=== PATIENT | male | born 1935 | race Caucasian/White ===

== ENCOUNTER → 2017-02-26 | Outpatient (CLI) | payer OTHER ==
[~2017-02-26] MED LIST: AMIO200T7 PO; ASCO250T4 PO; ASPI1TAB83 PO; DOCU100C31 PO; FINA5TAB4 PO; FURO40TA3 PO; LISI2.5T5 PO; LPR25 PO; OMEP20TA PO; OXYC-57 PO; POTA-74 PO; PRENTAB PO; SIMV20TA2 PO; TAMS0.4C59 PO
[2017-02-26 10:05] LABS: CHOLESTEROL/HDL RATIO 3.5
== END | disposition home or self-care (01) ==
LOC: C.LAB1850 08:58
PROVIDERS: ATTEND Internal Medicine Cardiovascular Disease
DX: E78.00 Pure hypercholesterolemia, unspecified (principal)

== ENCOUNTER 2022-03-16 10:11 | Observation (INO) ==
[2022-03-16] MEDS ORDERED: MECLIZINE HCL 25 MG TAB PO STA (10:37)
[2022-03-16] MEDS ORDERED: LABETALOL HCL IV 5 MG/ML 20ML IV STA (10:37)
[2022-03-16] MEDS ORDERED: SODIUM CHLORIDE 0.9% 500 ML IV ONE (10:37)
--- NOTE | 2022-03-16 10:42 | Emergency Department Note ---
Impression & Plan Ataxia, Vertebral artery stenosis, Hypertension ED Provider Note Name: MAE CARMEN Age: 87 Sex: M Arrives Via: Walk-In Informant: Patient, Nephew ED Provider: Forrest Mcintyre MD Chief Complaint: Dizziness Impression: As per impressions above Medical Decision Makin-year-old gentleman with a history of CAD, hypertension, hypercholesterolemia, atherosclerosis and previous CABG arrives for evaluation of dizziness/ataxia. On initial evaluation patient NIH is 0 but does have some difficulty with ambulation back and forth to bathroom. Symptoms ongoing since he awoke and thus not TNKase/thrombolytic candidate. His initial EKG on arrival is somewhat irregular though difficult to tell if this is just underlying PACs and tremor versus a flutter/fib. Patient is not anticoagulated other than aspirin 81 mg daily. Laboratory work-up is benign. Chest x-ray is benign. I did get a CTA of the head and neck to rule out large vessel occlusion as well as bleed which are both unremarkable for acute findings but do show significant atherosclerosis and narrowing primarily in the left vertebral artery. Patient was given some fluids, was seen p.o. and labetalol IV. His blood pressure did trend down some. He is in no distress breathing comfortably and states his dizziness is better. He is still having some ataxia issues. I am somewhat concerned that he has had small stroke especially given the significant bump in his blood pressure and inability to ambulate without help. Hospitalist was consulted for further management. I did order aspirin 324 mg p.o. however patient declined to take this given his history of nosebleeds. Per PCP notes: Patient does have a history of A. fib post CABG however that is been resolved he is no longer on anticoagulants Prior Medical Record and Triage/Nursing Notes reviewed by Me Additional history obtained from patient's nephew as well as previous PCP visits. Differentials:BPPV, dissection, dehydration, otitis media, electrolyte imbalance, intracranial hemorrhage, large vessel occlusion, stroke amongst other pathologies considered. Vital Signs: reviewed and remarkable for hypertension Interventions: Labetalol 10 mg IV, meclizine 25 mg p.o., normal saline bolus Labs:Reviewed and remarkable for no significant abnormalities on CBC, BMP, LFTs and COVID testing. Imaging:CT angio of the head and cervical spine no acute findings per radiology though there is significant vertebral stenosis noted. 1 view chest x-ray interpretation by me mild congestive failure no lobar infiltrates EKG:Interpretation per me. Indication stroke like symptoms. Normal sinus rh ythm at 64 bpm with a QTC of 476. There is a PAC noted. There is an underlying tremor versus a flutter noted however I feel this is more likely normal sinus rhythm. There is a left bundle branch block. There are no previous EKGs for comparison. Cardiac/Tele Monitoring: Cardiac Monitoring: An Order was placed for continuous cardiac monitoring. The monitor shows a rate of 60 with a normal sinus rhythm. Consults:Dr. Brunilda ELISE Hospitalist Plan: Disposition:Hospitalization. Condition: Good History of Present Illness:87-year-old male arrives for evaluation of dizzines s. Patient awoke this morning feeling dizzy. States he was unable to walk straight and fell over when feeding the cat. Continued dizziness. Patient denies any focal weakness. Denies any visual changes. States that he is feeling some spinning. He was able to drive to his nephew's house but could not go any further due to dizziness. Denies any headache, neck pain, chest pain, back pain, abdominal pain or other concerning signs or symptoms. Patient denies any history of A. fib or irregular heart rates. Past medical history: CAD, hypertension, CABG, hyper cholesterolemia, atherosclerosis Home Medications:Aspirin no other blood thinners amongst other medications he does take Allergies:No known drug allergies Vitals:Blood Pressure: 190/93, Pulse 67, RR 20, T 36.4C, O2 97% on RA Physical Exam: GENERAL: Patient is uncomfortable appearing and in mild distress. Very hard of hearing ENT: Mucous membranes moist, no nasal congestion. NECK: No masses appreciated, nomeningismus, trachea is midline. RESPIRATORY: No dyspnea. Clear to auscultation and equal bilaterally. No wheeze, no rhonchi. CARDIOVASCULAR: Irregular.No murmurs, rubs, gallops appreciated. GASTROINTESTINAL: Abdomen soft, non-tender, no peritonitis.Bowel sounds positive.No masses appreciated. NEUROLOGIC: Alert and oriented, no acute motor or sensory deficits, no focal weakness, cranial nerves grossly intact. SKIN: No rash, no jaundice, no diaphoresis. PSYCH: Appropriate GCS: 15 ED Course: Times/Reassessments: Patient does appear more comfortable however he is still having some difficulty getting back and forth to the bathroom requiring some assistance by the nursing staff. Forrest Mcintyre MD Past Med/Surg History Medical History (Updated 03/16/22 @ 13:58 by Forrest Mcintyre MD) Atrial fibrillation Clavicle fracture Hypersensitivity pneumonitis Lacunar stroke Pneumonia Surgical History S/P CABG x 3 S/P hernia repair Family History Father Coronary heart disease Other FH: CABG (coronary artery bypass surgery) Parkinson disease Social History Smoking Status: Unknown if ever smoked Hx Alcohol Use: Yes (social) Preferred Language: Samoan marital status: Single current occupational status: retired Feels Safe at Home: Yes Allergies Allergies Allergy/AdvReac Type Severity Reaction Status Date / Time No Known Drug Allergies Allergy Verified 03/03/22 10:44 Home Meds Home Medications Medication Instructions Recorded Confirmed ascorbic acid (vitamin C) 500 mg 500 mg PO BID 12/10/18 03/03/22 tablet aspirin 81 mg tablet,delayed 81 mg PO Q OTHER DAY 12/10/18 03/03/22 release (Adult Low Dose Aspirin) Previous Rx's Medication Instructions Recorded finasteride 5 mg tablet 5 mg PO DAILY #90 tabs 09/29/21 metoprolol tartrate 25 mg tablet 25 mg PO BID #180 tabs 09/29/21 simvastatin 20 mg tablet 20 mg PO DAILY #90 tabs 09/29/21 tamsulosin 0.4 mg capsule 0.4 mg PO DAILY #90 caps 09/29/21 Results & Data (ED) Vital Signs Vital Signs - 24 hr 03/16/22 10:19 03/16/22 13:30 03/16/22 11:00 Temperature 36.4 C L Temperature Source Skin Pulse Rate 67 Pulse Rate [Left Apical] 84 62 Pulse Rhythm [Left Apical] Regular Regular Pulse Strength [Left Apical] Normal Normal Respiratory Rate 20 19 20 Respiratory Effort / Characteristics Non-Labored Non-Labored Spontaneous Non-Labored Spontaneous Respiratory Depth Normal Normal Normal Respiratory Pattern Regular Regular Regular Blood Pressure 190/93 H Blood Pressure [Right Arm] 169/104 H 169/95 H Blood Pressure Mean 125 Blood Pressure Mean [Right Arm] 125 119 Blood Pressure Position [Right Arm] Lying Lying Pulse Oximetry 97 96 93 Oxygen Delivery Method Room Air Room Air Room Air Sepsis Recent Fever Within 48 Hours No Sepsis New/Unexplained Change in Mental Status N/A Sepsis Action Taken by Nursing No Action Required 03/16/22 12:00 Temperature Temperature Source Pulse Rate Pulse Rate [Left Apical] 69 Pulse Rhythm [Left Apical] Regular Pulse Strength [Left Apical] Normal Respiratory Rate 18 Respiratory Effort / Characteristics Non-Labored Spontaneous Respiratory Depth Normal Respiratory Pattern Regular Blood Pressure Blood Pressure [Right Arm] 155/91 H Blood Pressure Mean Blood Pressure Mean [Right Arm] 112 Blood Pressure Position [Right Arm] Lying Pulse Oximetry 94 Oxygen Delivery Method Room Air Sepsis Recent Fever Within 48 Hours Sepsis New/Unexplained Change in Mental Status Sepsis Action Taken by Nursing Laboratory Data 03/16/22 10:45 03/16/22 10:45 Lab Results 03/16/22 03/16/22 03/16/22 Range/Units 10:45 10:45 10:45 WBC 9.10 (4.8-10.8) K/ul RBC 4.75 (4.63-6.08) M/uL Hgb 14.9 (14.0-18.0) g/dl Hct 43.9 (40.1-51.0) % MCV 92.4 (80.0-100.0) fL MCH 31.4 (25.0-34.0) pg MCHC 33.9 (32.0-36.0) g/dL RDW Std Deviation 41.4 (36.4-46.3) fL RDW Coeff of Steven 12.1 (11.5-14.5) % Plt Count 240 (130-400) K/uL MPV 9.6 (9.4-12.4) fL Immature Gran % (Auto) 0.3 % Neut % (Auto) 80.6 % Lymph % (Auto) 8.9 % [place] % (Auto) 8.8 % Eos % (Auto) 1.0 % Baso % (Auto) 0.4 % Neut # (Auto) 7.33 H (1.4-6.5) K/uL Lymph # (Auto) 0.81 L (1.2-3.4) K/uL [place] # (Auto) 0.80 (0.24-0.82) K/uL Eos # (Auto) 0.09 (0-0.50) K/uL Baso # (Auto) 0.04 (0-0.2) K/uL Immature Gran # (Auto) 0.03 H (0.00-0.02) K/uL Sodium 138 (136-145) mmol/L Potassium 4.4 (3.5-5.1) mmol/L Chloride 109 H (98-107) mmol/L Carbon Dioxide 24 (21-32) mmol/L Anion Gap 5 (3-11) BUN 25 H (6-23) mg/dl Creatinine 1.04 (0.6-1.4) mg/dl Est Cr Clr Drug Dosing 44.3 ml/min Est GFR ( Amer) 74.0 ml/min Est GFR (Non-Af Amer) 63.8 ml/min BUN/Creatinine Ratio 24.0 H (10-20) Glucose 115 H (70-99(Fasting)) mg/dl Calcium 9.0 (8.5-10.1) mg/dl Magnesium 1.9 (1.7-2.4) mg/dl Total Bilirubin 0.8 (0.2-1.0) mg/dl AST 19 (13-39) U/L ALT 12 (7-52) U/L Alkaline Phosphatase 77 (34-104) U/L Troponin I High Sens 32.3 H (0-20) pg/ml Total Protein 7.4 (6.0-8.3) gm/dl Albumin 3.7 (3.4-5.0) gm/dl Globulin 3.7 (2.5-4.0) gm/dl Albumin/Globulin Ratio 1.0 (0.9-2) SARS-CoV-2, RNA, NAAT NEGATIVE (NEGATIVE) Administered Medications Discontinued Medications Aspirin (Aspirin 81 Mg Chew) 324 mg PO NOW STA Stop: 03/16/22 12:50 Last Admin: 03/16/22 13:07 Dose: Not Given Documented By: BONNY Sodium Chloride (Nss) 500 mls @ 999 mls/hr IV .Q31M ONE Stop: 03/16/22 11:07 Last Infusion: 03/16/22 12:11 Dose: 0 mls/hr Documented By: Admin: 03/16/22 11:03 Dose: 999 mls/hr Documented By: BONNY Ioversol (Optiray 320 500ml) 114 ml IV ONCE ONE Stop: 03/16/22 11:31 Last Admin: 03/16/22 11:37 Dose: 114 ml Documented By: SHELBY Labetalol HCl (Labetalol Hcl Iv 5 Mg/Ml 20ml) 10 mg IV NOW STA Stop: 03/16/22 10:38 Last Admin: 03/16/22 11:03 Dose: 10 mg Documented By: BONNY Co-signed By: ELISABETH Meclizine HCl (Meclizine Hcl 25 Mg Tab) 25 mg PO NOW STA Stop: 03/16/22 10:38 Last Admin: 03/16/22 11:03 Dose: 25 mg Documented By: BONNY Imaging Data Radiologist's Impression: Head CTA 03/16/22 10:37 CT angio head wo/w CLINICAL HISTORY: Stroke TECHNIQUE: Contiguous axial CT images of the head were acquired from the base of the skull to the vertex without intravenous contrast administration. CT angiography of the head was performed following intravenous administration of iodinated contrast. Coronal and sagittal MIPS were obtained from the axial data set and were submitted for review. Automated dose lowering techniques and/or adjustment according to patient size were utilized for this examination. All measurements were calculated based on NASCET criteria. CT DOSE: 1083.88 mGy.cm Comparison: Comparison is made to CT neck 03/16/2022 and MRI brain 06/22/2009 FINDINGS: CT head: Areas of decreased attenuation are present in the periventricular and subcortical white matter bilaterally consistent with small vessel ischemic disease. Generalized cerebral atrophy with commensurate enlargement of the ventricles, sulci, and cisterns is also present. There is no acute intracranial hemorrhage or evidence of acute territorial infarction. No shift of the midline structures, mass effect, or extra-axial abnormalities are shown. Atherosclerotic calcifications are present in the intracranial segments of the internal carotid arteries. Old infarct is seen in the left internal capsule. Right maxillary and bilateral ethmoid and sphenoid sinus disease is noted. CTA Head: The anterior and posterior cerebral circulations are patent. No hem odynamically significant stenosis, aneurysm, dissection, or arteriovenous malformation is shown. 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 There is markedly narrowing of the V4 segment of the left vertebral artery. Distal reconstitution is noted. origin of the right posterior cerebral artery is seen. IMPRESSION: 1. No acute intracranial hemorrhage, evidence of acute territorial infarction, or other acute intracranial disease process. 2. 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 This appears to be a chronic finding. Otherwise no occlusion or aneurysm is seen. Assessment of stenosis of the internal carotid arteries is based on NASCET criteria. ACT 112: Negative or not required by law. Electronically signed by: Nathan Delaney M.D. 03/16/2022 12:34 PM Neck CTA 03/16/22 10:37 CT ANGIOGRAPHY OF THE NECK WITH CONTRAST CLINICAL HISTORY: Stroke. Dizziness. COMPARISON STUDY: No previous studies for comparison. Technique: CT angiography of the carotid and vertebral arteries was obtained using Optiray and 3D reconstruction on an independent workstation. NASCET criteria was utilized. Automated exposure control was utilized for the study. A dose lowering technique was utilized adhering to the principles of ALARA. Findings: Median sternotomy wires are partially imaged. Right maxillary sinus is largely opacified. There is moderate mucosal thickening of the left maxillary and ethmoid sinuses. There are air-fluid levels within the sphenoid sinuses. There is mild mucosal thickening within inferior frontal sinuses. Moderate plaque is noted within the bilateral carotid bifurcations without significant stenosis. There is no dissection or aneurysm within the neck. Origin of the right vertebral artery is suboptimally assessed on this exam but there is suspected moderate stenosis at the vessel origin. There is severe stenosis of the intracranial portion of the left vertebral artery. IMPRESSION: 1. Moderate atherosclerotic plaque within the bilateral carotid bifurcations without significant stenosis. 2. Suspected moderate stenosis at the origin of the right vertebral artery, suboptimally assessed on this exam. Severe stenosis of the intracranial portion of the left vertebral artery. 3. Paranasal sinus opacification, as above. ACT 112: Negative or not required by law. Electronically signed by: Emiliano Morocho M.D. 03/16/2022 11:55 AM Chest X-Ray 03/16/22 10:38 XR chest 1V portable CLINICAL HISTORY: stroke TECHNIQUE: Single frontal radiograph of the chest was obtained. Comparison: Comparison is made to chest radiograph 11/18/2012 FINDINGS: Median sternotomy wires are unchanged. Cardiomegaly is noted. Faint airspace opacities are seen in the bilateral lower lungs. Prominence of the pulmonary vasculature is noted. No evidence of pleural effusion or pneumothorax. IMPRESSION: 1. Faint bibasilar airspace opacities likely represent atelectasis with or without superimposed aspiration/pneumonia. 2. Cardiomegaly and pulmonary edema. ACT 112: Negative or not required by law. Electronically signed by: Nathan Delaney M.D. 03/16/2022 11:22 AM Discharge Plan Visit Data Chief Complaint: Dizziness Stated Complaint: DIZZINESS, HYPERTENSION ED Provider: Forrest Mcintyre Discharge Problem: Ataxia, Vertebral artery stenosis, Hypertension Forms Stand Alone Forms: [employer] Prescriptions Prescriptions: No Action aspirin [Adult Low Dose Aspirin] 81 mg tablet,delayed release (DR/EC) 81 mg PO Q OTHER DAY ascorbic acid (vitamin C) 500 mg tablet 500 mg PO BID finasteride 5 mg tablet 5 mg PO DAILY Qty: 90 3RF metoprolol tartrate 25 mg tablet 25 mg PO BID Qty: 180 3RF simvastatin 20 mg tablet 20 mg PO DAILY Qty: 90 3RF tamsulosin 0.4 mg capsule 0.4 mg PO DAILY Qty: 90 3RF Referrals Referrals: Raffi Cool MD [Primary Care Provider] - : Vertebral artery stenosis Qualifiers: Laterality: left Qualified Code(s): I65.02 - Occlusion and stenosis of left vertebral artery Hypertension Qualifiers: Hypertension type: unspecified Qualified Code(s): I10 - Essential (primary) hypertension
[2022-03-16 10:58] LABS: Basophils # (auto) 0.04 K/uL (0-0.2); Basophils % (auto) 0.4 %; Eosinophils # (auto) 0.09 K/uL (0-0.50); Hematocrit (blood only) 43.9 % (40.1-51.0); Hemoglobin 14.9 g/dl (14.0-18.0); Immature Granulocytes # (auto) 0.03 K/uL (0.00-0.02); Immature Granulocytes % (auto) 0.3 %; Lymphocytes # (auto) 0.81 K/uL (1.2-3.4); Lymphocytes % (auto) 8.9 %; Mean Corpuscular Hemoglobin 31.4 pg (25.0-34.0); Mean Corpuscular Hgb Conc 33.9 g/dL (32.0-36.0); Mean Corpuscular Volume 92.4 fL (80.0-100.0); Mean Platelet Volume 9.6 fL (9.4-12.4); Monocytes % (auto) 8.8 %; Neutrophils # (auto) 7.33 K/uL (1.4-6.5); Neutrophils % (auto) 80.6 %; Platelet Count 240 K/uL (130-400); RDW Coefficient of Variation 12.1 % (11.5-14.5); RDW Standard Deviation 41.4 fL (36.4-46.3); Red Blood Count 4.75 M/uL (4.63-6.08)
[2022-03-16 11:20] LABS: Albumin Level 3.7 gm/dl (3.4-5.0); Bilirubin,Total 0.8 mg/dl (0.2-1.0); Creatinine Clr Calc Pharmacy 44.3 ml/min; Est GFR (Non-African American) 63.8 ml/min; Globulin 3.7 gm/dl (2.5-4.0); Magnesium 1.9 mg/dl (1.7-2.4); Potassium 4.4 mmol/L (3.5-5.1); Total Protein 7.4 gm/dl (6.0-8.3)
--- NOTE | 2022-03-16 11:23 | XRay Report ---
XR chest 1V portable CLINICAL HISTORY: stroke TECHNIQUE: Single frontal radiograph of the chest was obtained. Comparison: Comparison is made to chest radiograph 11/18/2012 FINDINGS: Median sternotomy wires are unchanged. Cardiomegaly is noted. Faint airspace opacities are seen in th e bilateral lower lungs. Prominence of the pulmonary vasculature is noted. No evidence of pleural eff usion or pneumothorax. IMPRESSION: 1. Faint bibasilar airspace opacities likely represent atelectasis with or without superimposed aspi ration/pneumonia. 2. Cardiomegaly and pulmonary edema. ACT 112: Negative or not required by law. Electronically signed by: Nathan Delaney M.D. 03/16/2022 11:22 AM
[2022-03-16 11:26] LABS: Troponin I High Sensitivity 32.3 pg/ml (0-20)
[2022-03-16] MEDS ORDERED: OPTIRAY 320 500ml IV ONE (11:30)
--- NOTE | 2022-03-16 11:56 | CT Scan Report ---
CT ANGIOGRAPHY OF THE NECK WITH CONTRAST CLINICAL HISTORY: Stroke. Dizziness. COMPARISON STUDY: No previous studies for comparison. Technique: CT angiography of the carotid and vertebral arteries was obtained using Optiray and 3D rec onstruction on an independent workstation. NASCET criteria was utilized. Automated exposure control was utilized for the study. A dose lowering technique was utilized adhering to the principles of ALA RA. Findings: Median sternotomy wires are partially imaged. Right maxillary sinus is largely opacified. T here is moderate mucosal thickening of the left maxillary and ethmoid sinuses. There are air-fluid le vels within the sphenoid sinuses. There is mild mucosal thickening within inferior frontal sinuses. M oderate plaque is noted within the bilateral carotid bifurcations without significant stenosis. There is no dissection or aneurysm within the neck. Origin of the right vertebral artery is suboptimally a ssessed on this exam but there is suspected moderate stenosis at the vessel origin. There is severe s tenosis of the intracranial portion of the left vertebral artery. IMPRESSION: 1. Moderate atherosclerotic plaque within the bilateral carotid bifurcations without significant sten osis. 2. Suspected moderate stenosis at the origin of the right vertebral artery, suboptimally assessed on this exam. Severe stenosis of the intracranial portion of the left vertebral artery. 3. Paranasal sinus opacification, as above. ACT 112: Negative or not required by law. Electronically signed by: Emiliano Morocho M.D. 03/16/2022 11:55 AM
--- NOTE | 2022-03-16 12:36 | CT Scan Report ---
CT angio head wo/w CLINICAL HISTORY: Stroke TECHNIQUE: Contiguous axial CT images of the head were acquired from the base of the skull to the iban mickey without intravenous contrast administration. CT angiography of the head was performed following intravenous administration of iodinated contrast. Coronal and sagittal MIPS were obtained from the ax ial data set and were submitted for review. Automated dose lowering techniques and/or adjustment acc ording to patient size were utilized for this examination. All measurements were calculated based on NASCET criteria. CT DOSE: 1083.88 mGy.cm Comparison: Comparison is made to CT neck 03/16/2022 and MRI brain 06/22/2009 FINDINGS: CT head: Areas of decreased attenuation are present in the periventricular and subcortical white vladimir er bilaterally consistent with small vessel ischemic disease. Generalized cerebral atrophy with comme nsurate enlargement of the ventricles, sulci, and cisterns is also present. There is no acute intracr anial hemorrhage or evidence of acute territorial infarction. No shift of the midline structures, mas s effect, or extra-axial abnormalities are shown. Atherosclerotic calcifications are present in the intracranial segments of the internal carotid arteries. Old infarct is seen in the left internal caps ule. Right maxillary and bilateral ethmoid and sphenoid sinus disease is noted. CTA Head: The anterior and posterior cerebral circulations are patent. No hemodynamically significan t stenosis, aneurysm, dissection, or arteriovenous malformation is shown. 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 There is markedly narrowing of the V4 segment of the left verteb ral artery. Distal reconstitution is noted. origin of the right posterior cerebral artery is se en. IMPRESSION: 1. No acute intracranial hemorrhage, evidence of acute territorial infarction, or other acute intrac ranial disease process. 2. 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 This appears to be a chronic finding. Otherwise no occlusion or aneurysm is seen. Assessment of stenosis of the internal carotid arteries is based on NASCET criteria. ACT 112: Negative or not required by law. Electronically signed by: Nathan Delaney M.D. 03/16/2022 12:34 PM
[2022-03-16] MEDS ORDERED: ASPIRIN 81 MG CHEW PO STA (12:49)
--- NOTE | 2022-03-16 13:02 | History & Physical Report ---
Date of Service March 16, 2022 Assessment & Plan (1) CVA (cerebral vascular accident): Plan: - Patient without is presenting with ataxia in ED present since this AM, without any other focal deficits. - Received full dose aspirin. - Initially hypertensive 190/93, received 10 mg labetalol, SBOP now 150s. 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 - Differential at this point is CVA vs vertigo. - MRI, routine, tomorrow. - Echo in a.m. - CBC, BMP, HbA1c, lipid panel in a.m. - PT, OT, ST to evaluate in a.m. - Labetalol 10 mg every 15 IV as needed, defer to ICU for continued IV boluses versus drip, goal SBP < 180, DBP <100. - Avoid hypotension, hypoglycemia. - Neurology consulted, appreciate their recommendations and assistance with this patient. - Already on moderate dose statin, consider adding high dose tomorrow pending lipid panel. - Already on ASA 81 mg every other day (gets nosebleeds if he takes daily), can consider switching to Plavix tomorrow, will defer decision to neurology. - Telemetry for 24 hours, evaluate for episodes of atrial fibrillation. (2) Elevated troponin: Plan: - HS troponin 32.3, patient without any chest pain, EKG LBBB, no prior EKGs for reference. - We will trend troponin, obtain echo. - Patient did receive full dose aspirin in ED for suspected CVA. (3) CAD (coronary artery disease): Plan: - s/P CABG 2012. - Trending troponin as above, echo. - Continue metoprolol, simvastatin, ASA. (4) Enlarged prostate with lower urinary tract symptoms (LUTS): Plan: - Continue finasteride, tamsulosin. (5) Benign hypertension: (6) Hypercholesterolemia: Plan - Admit to PCU. - SCDs, Lovenox for VTE ppx. - Full Code. History of Present Illness Chief Complaint: vertigo/dizziness since this morning Primary Care Provider: Raffi Cool MD Rafael Benítez is an 87 y/o male with a PMH significant for CAD s/p P CABG x2 in 2012, hypertension, hyperlipidemia, and BPH is presenting today with complaints of dizziness. Patient woke up this morning and noticed he was dizzy, having a hard time walking through his home performing chores. He fell over several times, noting he hit his head once, but without pain anywhere. He drove himself to 3 miles to his nephew's house, who then brought him to the ED for further evaluation. He is not noting any focal numbness, weakness, tingling, speech difficulties, visual changes, nausea, or vomiting. He still having a difficult time walking. On presentation he was initially hypertensive 190/93, given 10 mg IV labetalol down to 160/90. Vital signs otherwise within normal limits. Labs are unremarkable, with the exception of a troponin of 32.3. Renal function at baseline, no electrolyte abnormalities, no leukocytosis or anemia. COVID- negative. 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 CXR w/ faint bibasilar airspace opacities likely represent, cardiomegaly and pulmonary edema also noted. Upon arrival, patient received full dose aspirin 324 mg, 10 mg IV labetalol for SBP 190/93, 25 mg oral meclizine and 500 cc NS bolus. Allergies Allergy/AdvReac Type Severity Reaction Status Date / Time No Known Drug Allergies Allergy Verified 03/03/22 10:44 Home Medications Medication Instructions Recorded Confirmed Type ascorbic acid (vitamin C) 500 mg 500 mg PO BID 12/10/18 03/03/22 History tablet aspirin 81 mg tablet,delayed 81 mg PO Q OTHER DAY 12/10/18 03/03/22 History release (Adult Low Dose Aspirin) finasteride 5 mg tablet 5 mg PO DAILY #90 tabs 09/29/21 03/03/22 Rx metoprolol tartrate 25 mg tablet 25 mg PO BID #180 tabs 09/29/21 03/03/22 Rx simvastatin 20 mg tablet 20 mg PO DAILY #90 tabs 09/29/21 03/03/22 Rx tamsulosin 0.4 mg capsule 0.4 mg PO DAILY #90 caps 09/29/21 03/03/22 Rx Past Med/Surg History Medical History (Updated 03/16/22 @ 13:14 by Marisela Bacon PA-C) Atrial fibrillation Clavicle fracture Hypersensitivity pneumonitis Lacunar stroke Pneumonia Surgical History S/P CABG x 3 S/P hernia repair Family History Father Coronary heart disease Other FH: CABG (coronary artery bypass surgery) Parkinson disease Social History Smoking Status: Unknown if ever smoked Hx Alcohol Use: Yes (social) Preferred Language: [place]an marital status: Single current occupational status: retired Feels Safe at Home: Yes Review of Systems Review of Systems: Constitutional: No fever/chills, weakness, fatigue, myalgias, anorexia, night sweats Eyes: No diplopia, no worsening or blurred vision ENT: normal hearing, no trouble swallowing Respiratory: No cough, sputum, dyspnea at rest or on exertion Cardiovascular: No chest pain, tightness or palpitations Abdomen: No pain, nausea, vomiting, diarrhea or constipation : Denies dysuria, hematuria, increased urgency/frequency, urinary retention Musculoskeletal: No joint pain, calf pain, swelling Neurologic: dizziness, balance problem since this morning upon awakening; No weakness, numbness/tingling, or balance problems Psychiatric: No anxiety or depression Skin: No rash or itch Physical Exam Physical Exam: General: awake, alert, no apparent distress Head: Normocephalic, atraumatic ENT: PERRL, EOMI, no nystagmus, no pharyngeal exudate, mucous membranes moist Chest: Clear to auscultation, on room air, no adventitious breath sounds Cardiac: Regular rate and rhythm, no murmur, no JVD, normal peripheral pulses, good capillary refill Abdominal: NABS x 4 quadrants, soft, nontender to palpation, no rebound, guarding or tenderness Extremities: Normal inspection, no peripheral edema or erythema, calfs nontender to palpation Psych: Normal mood and affect Neuro: AAO x 3, strength intact bilaterally and rated 5/5, no motor deficits, speech is clear, no peripheral sensory deficits Skin: no rash or erythema Results & Data Results & Data ([facility]) Vital Signs (Past 12 Hours) Vital Signs Temp Pulse Resp BP Pulse Ox O2 Del Method 03/16/22 10:19 36.4 C L 67 20 190/93 H 97 Room Air Laboratory Results Abnormal lab results 03/16/22 03/16/22 Range/Units 10:45 10:45 Neut # (Auto) 7.33 H (1.4-6.5) K/uL Lymph # (Auto) 0.81 L (1.2-3.4) K/uL Immature Gran # (Auto) 0.03 H (0.00-0.02) K/uL Chloride 109 H (98-107) mmol/L BUN 25 H (6-23) mg/dl BUN/Creatinine Ratio 24.0 H (10-20) Glucose 115 H (70-99(Fasting)) mg/dl Troponin I High Sens 32.3 H (0-20) pg/ml Diagnostic Findings Head CTA 03/16/22 10:37 CT angio head wo/w CLINICAL HISTORY: Stroke TECHNIQUE: Contiguous axial CT images of the head were acquired from the base of the skull to the vertex without intravenous contrast administration. CT angiography of the head was performed following intravenous administration of iodinated contrast. Coronal and sagittal MIPS were obtained from the axial data set and were submitted for review. Automated dose lowering techniques and/or adjustment according to patient size were utilized for this examination. All measurements were calculated based on NASCET criteria. CT DOSE: 1083.88 mGy.cm Comparison: Comparison is made to CT neck 03/16/2022 and MRI brain 06/22/2009 FINDINGS: CT head: Areas of decreased attenuation are present in the periventricular and subcortical white matter bilaterally consistent with small vessel ischemic disease. Generalized cerebral atrophy with commensurate enlargement of the ventricles, sulci, and cisterns is also present. There is no acute intracranial hemorrhage or evidence of acute territorial infarction. No shift of the midline structures, mass effect, or extra-axial abnormalities are shown. Atherosclerotic calcifications are present in the intracranial segments of the internal carotid arteries. Old infarct is seen in the left internal capsule. Right maxillary and bilateral ethmoid and sphenoid sinus disease is noted. CTA Head: The anterior and posterior cerebral circulations are patent. No hemodynamically significant stenosis, aneurysm, dissection, or arteriovenous malformation is shown. 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 There is markedly narrowing of the V4 segment of the left vertebral artery. Distal reconstitution is noted. origin of the right posterior cerebral artery is seen. IMPRESSION: 1. No acute intracranial hemorrhage, evidence of acute territorial infarction, or other acute intracranial disease process. 2. 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 This appears to be a chronic finding. Otherwise no occlusion or aneurysm is seen. Assessment of stenosis of the internal carotid arteries is based on NASCET criteria. ACT 112: Negative or not required by law. Electronically signed by: Nathan Delaney M.D. 03/16/2022 12:34 PM Neck CTA 03/16/22 10:37 CT ANGIOGRAPHY OF THE NECK WITH CONTRAST CLINICAL HISTORY: Stroke. Dizziness. COMPARISON STUDY: No previous studies for comparison. Technique: CT angiography of the carotid and vertebral arteries was obtained using Optiray and 3D reconstruction on an independent workstation. NASCET criteria was utilized. Automated exposure control was utilized for the study. A dose lowering technique was utilized adhering to the principles of ALARA. Findings: Median sternotomy wires are partially imaged. Right maxillary sinus is largely opacified. There is moderate mucosal thickening of the left maxillary and ethmoid sinuses. There are air-fluid levels within the sphenoid sinuses. There is mild mucosal thickening within inferior frontal sinuses. Moderate plaque is noted within the bilateral carotid bifurcations without significant stenosis. There is no dissection or aneurysm within the neck. Origin of the right vertebral artery is suboptimally assessed on this exam but there is suspected moderate stenosis at the vessel origin. There is severe stenosis of the intracranial portion of the left vertebral artery. IMPRESSION: 1. Moderate atherosclerotic plaque within the bilateral carotid bifurcations without significant stenosis. 2. Suspected moderate stenosis at the origin of the right vertebral artery, suboptimally assessed on this exam. Severe stenosis of the intracranial portion of the left vertebral artery. 3. Paranasal sinus opacification, as above. ACT 112: Negative or not required by law. Electronically signed by: Emiliano Morocho M.D. 03/16/2022 11:55 AM Chest X-Ray 03/16/22 10:38 XR chest 1V portable CLINICAL HISTORY: stroke TECHNIQUE: Single frontal radiograph of the chest was obtained. Comparison: Comparison is made to chest radiograph 11/18/2012 FINDINGS: Median sternotomy wires are unchanged. Cardiomegaly is noted. Faint airspace opacities are seen in the bilateral lower lungs. Prominence of the pulmonary vasculature is noted. No evidence of pleural effusion or pneumothorax. IMPRESSION: 1. Faint bibasilar airspace opacities likely represent atelectasis with or without superimposed aspiration/pneumonia. 2. Cardiomegaly and pulmonary edema. ACT 112: Negative or not required by law. Electronically signed by: Nathan Delaney M.D. 03/16/2022 11:22 AM ECG Additional Comments: Poor data quality, interpretation may be adversely affected Sinus rhythm with 1st degree A-V block with Premature atrial complexes with Aberrant conduction Left axis deviation Left bundle branch block Abnormal ECG No previous ECGs available. Code Status & VTE Plan Code Status Full Code. Supervising Physician Co-Signing Physician Notes Patient seen and examined, chart reviewed, case discussed with RAYRAY Bacon and I agree with the assessment and plan as documented above. In brief, patient is an 87yo male with history of CAD s/p CABG x 2V in 2012, HTN, HLP presenting with vertigo and dizziness as well as ambulatory dysfunction. Patient hypertensive on arrival at 190/93. He denies chest pain, palpitations, headache. Received ASA 324mg po and Labetalol 10mg IV as well as Meclizine. On exam he is resting comfortably, NAD, extremely hard of hearing - relies on lip reading Skin - intact HEENT - NC/AT, PERRL, MMM, neck supple Heart - +S1/S2, regular, +3/6 OLY at apex Lungs - CTA Abd - +BS, soft, NT/ND Ext - warm, well perfused Labs and images reviewed. Troponin = 32.3 EKG with LBBB pattern, no prior EKGs available Assessment/Plan: 87yo male with history of CAD, HTN, HLP presenting with vertigo/dizziness and gait instability. HTN on arrival to 190/93 Possible TIA/CVA CT and CTA with moderate atherosclerotic plaque. No lesions for intervention -Check MRI -Check echo -Repeat troponin -PT/OT evaluation -Neurology assistance appreciated -Patient does get nosebleeds while taking Aspirin. Has not been taking it at home. Patient would greatly benefit from daily anti-platelet. May consider Plavix or ASA q 2-3 days. -Remainder of plan as above PG Care Time/CCT Total # of Minutes Spent Total Time Spent with Patient: Total time spent is greater than 50% in coordination of care (as documented) at patient's floor/unit and/or counseling patient: Coding Level of Care Code 61846 INT INP/OBS CARE 3/75MIN Diagnoses CVA (cerebral vascular accident) I63.9 Elevated troponin R77.8 CAD (coronary artery disease) I25.10 Enlarged prostate with lower urinary tract symptoms (LUTS) N40.1 Benign hypertension I10 Hypercholesterolemia E78.00
[2022-03-16] MEDS ORDERED: POLYETHYLENE (MIRALAX) 17 GM PACK PO PRN (15:29)
[2022-03-16] MEDS ORDERED: PHARMACIST DISCHARGE MED REC CONSULT PRN (15:29)
[2022-03-16] MEDS ORDERED: ONDANSETRON INJ 2 MG/ML 2 ML VIAL IV PRN (15:29)
[2022-03-16] MEDS ORDERED: ACETAMINOPHEN 325 MG TAB PO PRN (15:29)
[2022-03-16] MEDS ORDERED: MECLIZINE HCL 25 MG TAB PO PRN (15:29)
[2022-03-16] MEDS ORDERED: ALUMINUM/MAGNESIUM SUSP 30 ML UDC PO PRN (15:29)
--- NOTE | 2022-03-16 20:37 | Magnetic Resonance Report ---
MR brain wo con HISTORY: 87 years-old Male CVA acute dizziness with hypertension COMPARISON: Head CT of same day, brain MRI 06/22/2009 TECHNIQUE: Multiplanar multisequence MRI of the brain was obtained without the use of IV contrast. FINDINGS: No restricted diffusion to suggest acute or subacute infarct. Midline structures appear unremarkable. Partially empty sella. Degenerative changes of the imaged cervical spine. No acute intracranial hemo rrhage, midline shift, abnormal extra-axial collection, hydrocephalus or intracranial mass. No pathol ogic blooming artifact on the T2 star series. Involutional changes with moderate/FLAIR hyperintense foci throughout the white matter. Cerebral veno us sinuses and major arterial flow voids appear patent. Skull and orbits and soft tissues are unremar kable. Moderate to extensive mucosal thickening of the paranasal sinuses. Mastoid air cells are clear . IMPRESSION: 1. No acute intracranial abnormality. No acute or subacute infarct. 2. Involutional changes with moderate chronic microvascular ischemic disease. ACT 112: Negative or not required by law. The above report was generated using voice recognition software. It may contain grammatical, syntax o r spelling errors. Electronically signed by: Papito Benitez M.D. 03/16/2022 8:36 PM
[2022-03-16] MEDS ORDERED: SIMVASTATIN 20 MG TAB PO SCH (21:00)
[2022-03-16] MEDS: ASCORBIC ACID 500 MG TAB PO SCH (21:25)
[2022-03-16] MEDS: METOPROLOL TARTRATE 25 MG TAB PO SCH (21:25)
[2022-03-17 04:25] LABS: Basophils # (auto) 0.04 K/uL (0-0.2); Basophils % (auto) 0.6 %; Eosinophils # (auto) 0.36 K/uL (0-0.50); Hematocrit (blood only) 38.8 % (40.1-51.0); Hemoglobin 13.4 g/dl (14.0-18.0); Immature Granulocytes # (auto) 0.02 K/uL (0.00-0.02); Immature Granulocytes % (auto) 0.3 %; Lymphocytes # (auto) 1.16 K/uL (1.2-3.4); Lymphocytes % (auto) 16.1 %; Mean Corpuscular Hemoglobin 31.7 pg (25.0-34.0); Mean Corpuscular Hgb Conc 34.5 g/dL (32.0-36.0); Mean Corpuscular Volume 91.7 fL (80.0-100.0); Monocytes # (auto) 0.93 K/uL (0.24-0.82); Monocytes % (auto) 12.9 %; Neutrophils # (auto) 4.71 K/uL (1.4-6.5); Neutrophils % (auto) 65.1 %; Platelet Count 210 K/uL (130-400); RDW Coefficient of Variation 12.2 % (11.5-14.5); RDW Standard Deviation 41.5 fL (36.4-46.3); Red Blood Count 4.23 M/uL (4.63-6.08); White Blood Count 7.22 K/ul (4.8-10.8)
[2022-03-17 04:57] LABS: BUN Creatinine Ratio 20.3 (10-20); Calcium 8.5 mg/dl (8.5-10.1); Chol HDL Ratio 3.8 (0-5); Creatinine Clr Calc Pharmacy 35.8 ml/min; Est GFR (African American) 57.5 ml/min; Est GFR (Non-African American) 49.6 ml/min; Potassium 4.4 mmol/L (3.5-5.1)
--- NOTE | 2022-03-17 05:23 | Electrocardiogram Report ---
Test Reason : Blood Pressure : / mmHG Vent. Rate : 064 BPM Atrial Rate : 064 BPM P-R Int : 218 ms QRS Dur : 150 ms QT Int : 462 ms P-R-T Axes : 051 -30 143 degrees QTc Int : 476 ms Poor data quality, interpretation may be adversely affected Sinus rhythm with 1st degree A-V block with Premature ventricular complexes Left axis deviation Left bundle branch block Abnormal ECG No previous ECGs available Confirmed by Rashawn Polo ([id number]) on 03/17/2022 5:22:42 AM Referred By: REFERRED SELF Confirmed By:Rashawn Polo
[2022-03-17 06:48] LABS: Estimated Average Glucose 117 mg/dl; Hemoglobin A1C 5.7 % (4.5-5.6)
[2022-03-17] MEDS ORDERED: FINASTERIDE 5 MG TAB PO SCH (09:00)
[2022-03-17] MEDS ORDERED: SIMVASTATIN 20 MG TAB PO SCH (09:00)
[2022-03-17] MEDS ORDERED: TAMSULOSIN HCL 0.4 MG CAP PO SCH (09:00)
[2022-03-17] MEDS ORDERED: ENOXAPARIN INJ 40 MG/0.4 ML SYR SQ SCH (09:00)
[2022-03-17] MEDS: ASCORBIC ACID 500 MG TAB PO SCH (09:50)
[2022-03-17] MEDS: METOPROLOL TARTRATE 25 MG TAB PO SCH (09:51)
--- NOTE | 2022-03-17 11:45 | Discharge Summary ---
Date of Service March 17, 2022 Admission HPI Per Admitting Provider Rafael Benítez is an 87 y/o male with a PMH significant for CAD s/p P CABG x2 in 2012, hypertension, hyperlipidemia, and BPH is presenting today with complaints of dizziness. Patient woke up this morning and noticed he was dizzy, having a hard time walking through his home performing chores. He fell over several times, noting he hit his head once, but without pain anywhere. He drove himself to 3 miles to his nephew's house, who then brought him to the ED for further evaluation. He is not noting any focal numbness, weakness, tingling, speech difficulties, visual changes, nausea, or vomiting. He still having a difficult time walking. On presentation he was initially hypertensive 190/93, given 10 mg IV labetalol down to 160/90. Vital signs otherwise within normal limits. Labs are unremarkable, with the exception of a troponin of 32.3. Renal function at baseline, no electrolyte abnormalities, no leukocytosis or anemia. COVID- negative. 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 CXR w/ faint bibasilar airspace opacities likely represent, cardiomegaly and pulmonary edema also noted. Upon arrival, patient received full dose aspirin 324 mg, 10 mg IV labetalol for SBP 190/93, 25 mg oral meclizine and 500 cc NS bolus. Principal Diagnosis Vertigo due to suspected acute labyrinthitis Discharge Exam General-alert and oriented x3, no fevers, no chills HEENT-head atraumatic and normocephalic, pupils equal and reactive to light, extraocular muscles intact Neck-no lymphadenopathy or thyromegaly, trachea midline Chest-clear to auscultation percussion. No rales wheezing or rhonchi Cardiac-regular rate and rhythm, normal S1 and S2, grade 2/6 systolic murmur Abdomen-normal bowel sounds, nontender, no hepatosplenomegaly Extremities-no cyanosis, clubbing, or edema Neuro-cranial nerves II through XII intact, motor and sensory function within normal limits, strength symmetrical , no focal deficits Psych-normal affect, normal mood Discharge Data Allergies Allergy/AdvReac Type Severity Reaction Status Date / Time No Known Drug Allergies Allergy Verified 03/03/22 10:44 Consultations 01/05/23 12:52 ED Decision to Admit Stat Ordered Studies 03/16/22 10:37 CT angio head wo/w Stat CT angio neck with con Stat 03/16/22 15:29 MR brain wo con Routine Hospital Course (1) CVA (cerebral vascular accident): Ruled out. Brain MRI scan shows no acute changes. It appears he had acute labyrinthitis producing transient vertigo which now has resolved according to the patient. He is back to his baseline. Medications will remain unchanged at this point. He does have some vascular disease seen on head and neck CTA which is age-related and does not require intervention at this time. (2) Elevated troponin: No trending. No evidence of acute coronary syndrome. (3) CAD (coronary artery disease): s/P CABG 2012. Denies chest pain. Troponin is not trending. No evidence of acute coronary syndrome. Continue current medical management . PCP should consider stopping beta-neyda due to underlying trifascicular heart block and using a different blood pressure control medication without cardiac effect. (4) Enlarged prostate with lower urinary tract symptoms (LUTS): Stable. Continue finasteride, tamsulosin. (5) Benign hypertension: Age-related labile hypertension. Consider stopping metoprolol and switching to a different antihypertensive due to underlying trifascicular heart block. 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 Consider stopping metoprolol and using a different blood pressure medication that is without cardiac effect Plan Discharge to home today, March 17. Nephew was present and states he is considering getting an alert system at home for the patient since he lives alone. - Full Code. Total Time Total Time Spent Total Time Spent (In Minutes): 35 minutes Discharge Plan Discharge Items Patient Disposition: Home - Self-Care Reason For Visit: CVA Discharge Diagnosis: Vertigo suspected due to acute lab otitis. Elevated troponin level. Trifascicular heart block Activity: Resume your previous activity Non-emergency contact: Primary Care Provider Call non-emergency contact if: you have any medication questions and your symptoms worsen Follow-up/Referrals: Raffi Cool MD [Primary Care Provider] - Diet: Heart Healthy Addtl Attending Provider Instructions: Consider switching metoprolol to a different blood pressure medication to avoid any adverse cardiac effects Pending Studies at Discharge: No Stand-Alone Forms: My [facility], Smoking Cessation Medications and DC Order Prescriptions: Continued aspirin [Adult Low Dose Aspirin] 81 mg tablet,delayed release (DR/EC) 81 mg PO Q OTHER DAY ascorbic acid (vitamin C) 500 mg tablet 500 mg PO BID finasteride 5 mg tablet 5 mg PO DAILY Qty: 90 3RF metoprolol tartrate 25 mg tablet 25 mg PO BID Qty: 180 3RF simvastatin 20 mg tablet 20 mg PO DAILY Qty: 90 3RF tamsulosin 0.4 mg capsule 0.4 mg PO DAILY Qty: 90 3RF Discharge Orders: Discharge Order (Routine); Ordered 03/17/22 Ordered By: Charli Pena Admission Data Admit Date/Time: 03/16/22 13:11 Attending Provider: Charli Pena Admit Provider: Milli Haddad Primary Care Provider: Raffi Colo Other Providers: Dino Worley Coding Level of Care Code HOSP INP/OBS DISCH >30 MIN Diagnoses CVA (cerebral vascular accident) I63.9 Elevated troponin R77.8 CAD (coronary artery disease) I25.10 Enlarged prostate with lower urinary tract symptoms (LUTS) N40.1 Benign hypertension I10 Hypercholesterolemia E78.00 Trifascicular block I45.3
[2022-03-17] MEDS ORDERED: STROKE PATIENT DISCHARGE STA (11:46)
--- NOTE | 2022-03-17 14:50 | XCELERA ---
[id number]
== END 2022-03-17 13:44 | disposition home or self-care (01) ==
LOC: ED 10:11 → 2S 10:11 → SUATTDRO 13:11 → 2S 15:00